=== PATIENT | female | born 1950 | race African-American/Black ===

== ENCOUNTER 2018-05-06 16:47 | Inpatient (IN) | payer OTHER ==
[~2018-05-06] VITALS: Ht 157.5 cm; Wt 88.9 kg
--- NOTE | ~2018-05-06 | EKG ---
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
[2018-05-06 17:42] LABS: BE(vivo) 1.4 mmol/L (-2 to +3); PCO2 41.3 mmHg (35.0-45.0); PO2 86.9 mmHg (80.0-100.0); pH 7.417 (7.360-7.450); sO2 96.7 % (92.0-98.0)
[2018-05-06] MEDS ORDERED: CYMBALTA60 MG PO (17:53)
[2018-05-06] MEDS ORDERED: ASPIR-LOW81 MG PO (17:53)
[2018-05-06] MEDS ORDERED: HYDROXYZINE HCL25 M1 PO (17:53)
[2018-05-06] MEDS ORDERED: CLONAZEPAM 0.50.5 M1 PO (17:54)
[2018-05-06] MEDS ORDERED: REMERON15 MG PO (17:54)
[2018-05-06] MEDS ORDERED: OMEPRAZOLE40 MG PO (17:55)
[2018-05-06] MEDS ORDERED: VERAPAMIL E.R240 M1 PO ×2 (17:56→17:57)
[2018-05-06] MEDS ORDERED: LIORESAL 10 MG10 MG PO (17:57)
[2018-05-06] MEDS ORDERED: LABETALOL HCL100 MG PO (17:57)
[2018-05-06] MEDS ORDERED: METFORMIN HCL500 MG PO (17:57)
[2018-05-06] MEDS ORDERED: GLIPIZIDE 10 MG10 MG PO (17:58)
[2018-05-06] MEDS ORDERED: NEURONTIN 400400 M1 PO (17:58)
[2018-05-06 18:03] LABS: BASOPHILS 1.1 % (0.0-2.0); EOSINOPHILS 3.8 % (0.0-3.0); HEMATOCRIT 30.6 % (37.0-47.0); LYMPHOCYTES 43.4 % (24.0-44.0); MCH 23.1 pg (26.0-34.0); MCHC 32.6 g/dL (28.0-37.0); MCV 70.9 fL (80.0-100.0); MONOCYTES 8.2 % (1.0-8.0); PLATELET COUNT 313 thou/uL (150-400); POLYS 43.5 % (36.0-66.0); RBC 4.32 mil/uL (4.20-5.00); RDW 17.9 % (10.5-14.5); WBC 6.8 thou/uL (4.0-11.0)
[2018-05-06 18:17] LABS: ANION GAP 8 mmol/L (7-16); BUN 13 mg/dL (7-18); CALCIUM 8.7 mg/dL (8.5-10.1); CHLORIDE 104 mmol/L (98-107); CO2 28 mmol/L (21-32); CREATININE 0.8 mg/dL (0.6-1.0); GLUCOSE 91 mg/dL (74-106); POTASSIUM 3.8 mmol/L (3.5-5.1); SODIUM 140 mmol/L (136-145)
[2018-05-06 18:25] LABS: TROPONIN-I <0.06 ng/mL (<0.06)
[2018-05-06 18:47] LABS: URINE BILIRUBIN NEGATIVE (Negative); URINE BLOOD NEGATIVE (Negative); URINE CLARITY CLEAR; URINE COLOR YELLOW; URINE GLUCOSE-RANDOM* NEGATIVE (Negative); URINE KETONES NEGATIVE (Negative); URINE LEUKOCYTES-REFLEX NEGATIVE (Negative); URINE NITRITE-REFLEX NEGATIVE (Negative); URINE PROTEIN (DIPSTICK) NEGATIVE (Negative); URINE UROBILINOGEN 0.2 E.U./dl (0.2-1.0)
[2018-05-06 18:57] LABS: AMP/METHAMP Negative (Negative); BARBITURATES Negative (Negative); BENZODIAZEPINES Negative (Negative); COCAINE Negative (Negative); METHADONE Negative (Negative); OPIATES POSITIVE (Negative); PCP Negative (Negative)
[2018-05-06 20:20] VITALS: BP 165/83
[2018-05-06 20:45] VITALS: BP 165/82
[2018-05-06 21:04] VITALS: BP 162/81
[2018-05-07 04:34] VITALS: BP 153/81
[2018-05-07 09:04] VITALS: BP 154/76
[2018-05-07 19:05] VITALS: BP 130/70
[2018-05-08] VITALS (8 sets, daily range): BP systolic 128–131; BP diastolic 55–74
== END 2018-05-08 18:35 | disposition home health service (06) | DRG 91 ==
LOC: ER 16:47 → EROBS 20:05 → 4E 20:05 → ENTRNSPT 05-08 18:08 → 4E 05-08 18:35
PROVIDERS: Emergency Medicine
DX: G92 Toxic encephalopathy (principal); J96.01 Acute respiratory failure with hypoxia; F11.20 Opioid dependence, uncomplicated; M54.9 Dorsalgia, unspecified; I10 Essential (primary) hypertension; E03.9 Hypothyroidism, unspecified; E11.9 Type 2 diabetes mellitus without complications; E78.5 Hyperlipidemia, unspecified; K21.9 Gastro-esophageal reflux disease without esophagitis; M19.90 Unspecified osteoarthritis, unspecified site; M54.10 Radiculopathy, site unspecified; Z96.652 Presence of left artificial knee joint; Z96.641 Presence of right artificial hip joint; Z87.891 Personal history of nicotine dependence; Z79.82 Long term (current) use of aspirin; Z79.84 Long term (current) use of oral hypoglycemic drugs; Z79.899 Other long term (current) drug therapy; Z88.0 Allergy status to penicillin; Z88.2 Allergy status to sulfonamides; Z80.0 Family history of malignant neoplasm of digestive organs
CPT/HCPCS: 10084

== ENCOUNTER 2018-06-18 01:23 | Emergency (ER) | payer OTHER ==
[~2018-06-18] VITALS: Ht 157.5 cm; Wt 89.4 kg
[~2018-06-18 01:23] MED LIST: ASPIR-LOW81 MG PO; CLONAZEPAM 0.50.5 M1 PO; CYMBALTA60 MG PO; GLIPIZIDE 10 MG10 MG PO; HYDROXYZINE HCL25 M1 PO; LABETALOL HCL100 MG PO; LIORESAL 10 MG10 MG PO; METFORMIN HCL500 MG PO; NEURONTIN 400400 M1 PO; OMEPRAZOLE40 MG PO; REMERON15 MG PO; VERAPAMIL E.R240 M1 PO
[2018-06-18] MEDS ORDERED: SSD CREAM 1% 5050 GM TOP (01:37)
[2018-06-18] MEDS ORDERED: HYDROCHLOROTHIA25 M2 PO (01:37)
[2018-06-18] MEDS ORDERED: NORCO 7.5-3251 EACH PO (01:38)
[2018-06-18 03:05] LABS: HEMATOCRIT 30.5 % (37.0-47.0); HEMOGLOBIN 9.8 gm/dL (12.0-15.0); MCH 22.1 pg (26.0-34.0); PLATELET COUNT 390 thou/uL (150-400); RBC 4.42 mil/uL (4.20-5.00); RDW 17.3 % (10.5-14.5); WBC 10.2 thou/uL (4.0-11.0)
[2018-06-18 03:13] LABS: ANION GAP 12 mmol/L (7-16); BUN 20 mg/dL (7-18); CALCIUM 8.3 mg/dL (8.5-10.1); CHLORIDE 102 mmol/L (98-107); CO2 25 mmol/L (21-32); CREATININE 1.6 mg/dL (0.6-1.0); GLUCOSE 129 mg/dL (74-106); POTASSIUM 4.1 mmol/L (3.5-5.1); SODIUM 139 mmol/L (136-145)
[2018-06-18 03:21] LABS: ALBUMIN 2.8 g/dL (3.4-5.0); SGOT 21 U/L (15-37); SGPT 17 U/L (30-65); TOTAL BILIRUBIN 0.4 mg/dL (<0.1-1.0); TOTAL PROTEIN 5.8 g/dL (6.4-8.2); TROPONIN-I <0.06 ng/mL (<0.06)
[2018-06-18 03:43] LABS: ABSOLUTE NEUTROPHILS 5.2 thou/uL (1.4-8.2); ANISOCYTOSIS 1+; ATYPICAL LYMPHS 4 %; HYPOCHROMASIA 2+; LARGE PLATELETS OCCASIONAL; MICROCYTES 2+
[2018-06-18 03:45] LABS: OVALOCYTES 1+; POLYCHROMASIA 1+
[2018-06-18 03:56] VITALS: BP 174/94
[2018-06-18] MEDS ORDERED: PREDNISONE 20 M20 M1 PO (03:57)
--- NOTE | 2018-06-18 08:52 | EKG ---
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: [place] : 1950 Requested By: Ole Leach Order Number: [id number] MD: Gerald Shah Measurements Intervals [place] Rate: 89 P: 50 [place]: 140 QRS: 14 QRSD: 85 T: 26 QT: 402 QTc: 490 Interpretive Statements Sinus rhythm Borderline prolonged QT interval Compared to ECG 05/06/2018 17:49:29 No significant changes Electronically Signed On 06-18-2018 8:52:40 CONSULTING MANAGER by Gerald Shah [email or web address] <ELECTRONICALLY SIGNED> By: Gerald Shah MD, [facility] 06/18/18 0852 0221 022 Gerald Shah MD, FACC /EPI
== END 2018-06-18 04:10 | disposition home or self-care (01) ==
LOC: ER 01:23
PROVIDERS: Emergency Medicine
DX: R21 Rash and other nonspecific skin eruption (principal); I10 Essential (primary) hypertension; E11.9 Type 2 diabetes mellitus without complications; M54.9 Dorsalgia, unspecified; G89.29 Other chronic pain; E78.5 Hyperlipidemia, unspecified; K21.9 Gastro-esophageal reflux disease without esophagitis; M19.90 Unspecified osteoarthritis, unspecified site; Z88.0 Allergy status to penicillin; Z88.2 Allergy status to sulfonamides